=== PATIENT | male | born 1975 | race Caucasian/White ===

== ENCOUNTER → 2017-12-02 | Outpatient (REF) | payer OTHER ==
[2017-12-02 17:49] LABS: ALBUMIN 3.6 GM/DL (3.2-5.2); ALBUMIN/GLOBULIN RATIO 1.13 (1.00-1.93); ALKALINE PHOSPHATASE 95 U/L (45-117); ALT/SGPT 37 U/L (12-78); ANION GAP 6 MEQ/L (8-16); AST/SGOT 15 U/L (7-37); BILIRUBIN,TOTAL 0.2 MG/DL (0.2-1.0); BLOOD UREA NITROGEN 12 MG/DL (7-18); CALCIUM LEVEL 8.5 MG/DL (8.5-10.1); CARBON DIOXIDE LEVEL 28 MEQ/L (21-32); CHLORIDE LEVEL 107 MEQ/L (98-107); CREATININE FOR GFR 0.99 MG/DL (0.70-1.30); GLOMERULAR FILTRATION RATE > 60.0 (>60); GLUCOSE, FASTING 164 MG/DL (70-100); POTASSIUM SERUM 4.2 MEQ/L (3.5-5.1); SODIUM LEVEL 141 MEQ/L (136-145); TOTAL PROTEIN 6.8 GM/DL (6.4-8.2)
[2017-12-02 19:14] LABS: ESTIMATED AVERAGE GLUCOSE 146 MG/DL (60-110); HEMOGLOBIN A1c 6.7 %
== END ==
LOC: M SFHCLERA 13:46
DX: R73.01 Impaired fasting glucose (principal); R61 Generalized hyperhidrosis

== ENCOUNTER 2019-03-29 15:54 | Inpatient (IN) | payer OTHER ==
[~2019-03-29] VITALS: Ht 182.9 cm; Wt 104.8 kg
[2019-03-29] MEDS ORDERED: INSULIN HUMAN REGULAR 100 UNITS in NS 99 ML IV SCH ×3 (16:21→18:09)
[2019-03-29] MEDS ORDERED: INSULIN IV RATE CHANGE DOCUMENTATION ML/HR XX SCH ×3 (16:30→18:15)
[2019-03-29] MEDS ORDERED: NS 1,000 ML IV ONE ×2 (16:30→19:00)
[2019-03-29 16:39] LABS: VENOUS BASE EXCESS -2.7 (-2.0-2.0); VENOUS O2 SATURATION 97.7 % (60.0-80.0); VENOUS PARTIAL PRESSURE CO2 38.4 mmHg (38.0-50.0); VENOUS PARTIAL PRESSURE O2 97.2 mmHg (30.0-50.0); VENOUS PH 7.376 UNITS (7.330-7.430); VENOUS STANDARD HCO3 22.2 MEQ/L; VENOUS TOTAL CO2 23.2 MEQ/L (24.0-28.0)
[2019-03-29 16:41] LABS: BASO % 0.5 % (0.0-1.0); EOS # 0.2 10^3/uL (0.0-0.50); EOS % 1.8 % (0.0-3.0); HEMATOCRIT 43.5 % (42.0-52.0); HEMOGLOBIN 15.3 g/dl (13.5-17.5); LYMPH # 2.6 10^3/uL (1.5-4.5); LYMPH % 30.6 % (24.0-44.0); MEAN CORPUSCULAR HEMOGLOBIN 29.2 pg (27.0-33.0); MEAN CORPUSCULAR HGB CONC 35.2 g/dl (32.0-36.5); MONO # 0.5 10^3/uL (0.0-0.8); MONO % 5.6 % (0.0-5.0); NEUTROPHILS # 5.2 10^3/uL (1.8-7.7); NEUTROPHILS % 60.9 % (36.0-66.0); PLATELET COUNT, AUTOMATED 189 10^3/uL (150-450); RED BLOOD COUNT 5.24 10^6/uL (4.30-6.10); WHITE BLOOD COUNT 8.5 10^3/uL (4.0-10.0)
--- NOTE | 2019-03-29 16:48 | REP ---
Clinical: Diabetic ketoacidosis . Comparison: 10/11/2006. Findings: The mediastinum and cardiac silhouette are stable and within normal limits for portable technique. The lung conroy are clear without acute consolidation, effusion, or pneumothorax. Skeletal structures are intact. Impression: No acute cardiopulmonary process appreciated. Electronically Signed by Bharathi Lawrence MD 03/29/2019 04:40 P
[2019-03-29 17:11] LABS: HEMOGLOBIN A1c 12.6 %
[2019-03-29 17:17] LABS: ALBUMIN 3.7 GM/DL (3.2-5.2); BILIRUBIN,DIRECT < 0.1 MG/DL (0.0-0.2); BILIRUBIN,TOTAL 0.4 MG/DL (0.2-1.0); BLOOD UREA NITROGEN 16 MG/DL (7-18); CALCIUM LEVEL 8.3 MG/DL (8.5-10.1); CARBON DIOXIDE LEVEL 23 MEQ/L (21-32); CHLORIDE LEVEL 100 MEQ/L (98-107); ETHYL ALCOHOL (ETHANOL) < 0.003 % (0.000-0.010); GLOMERULAR FILTRATION RATE > 60.0 (>60); GLUCOSE, FASTING 533 MG/DL (70-100); LIPASE 270 U/L (73-393); POTASSIUM SERUM 4.3 MEQ/L (3.5-5.1); SODIUM LEVEL 132 MEQ/L (136-145); TOTAL PROTEIN 7.2 GM/DL (6.4-8.2)
[2019-03-29 17:31] LABS: ALT/SGPT 43 U/L (12-78)
[2019-03-29] MEDS ORDERED: MOM 30ML SUSPENSION UDC PO PRN (18:15)
[2019-03-29] MEDS ORDERED: ACETAMINOPHEN TAB 650MG DOSE (2X325MG) PO PRN (18:15)
[2019-03-29] MEDS ORDERED: MAALOX 30 ML SUSP *UDC PO PRN (18:15)
--- NOTE | 2019-03-29 18:36 | HPEPDOC ---
General Date of Admission 03/29/2019 Date of Service: Mar 29, 2019 Attending Physician: LATASHA TAMAYO MD Chief Complaint The patient is a 43-year-old male admitted with a reason for visit of Blood S ugar Problem. Source: Patient, Family Exam Limitations: No limitations Timing/Duration: Unsure Severity: Moderate Associated Symptoms: Other (polyuria, polydipsia) History of Present Illness 43 years old white male with past medical history of hypertension, diabetes mellitus, noncompliant to his meds. Hasn't seen a doctor long time, came in with chief complaints of increasing thirst, urination and blurring of vision, unable to drive. Denies chest pain, shortness of breath, syncope, etc. Home Medications No Active Prescriptions or Reported Meds Allergies Coded Allergies: divalproex sodium (Verified Adverse Reaction, Intermediate, hives/ trouble breathing, 03/29/19) Past Medical History Medical History Diabetes mellitus and hypertension Surgical History None Family History Significant Family History: No pertinent family hx Social History * Smoker: Denies Alcohol: Denies Drugs: denies A-FIB/CHADSVASC A-FIB History Current/History of A-Fib/PAF?: No Review of Systems Constitutional: Reports: Weakness, Fatigue, Other (, polydipsia); Denies: Chills, Fever, Malaise, Night Sweats, Weight Loss, Lethargy Eyes: Reports: Other (, blurred vision); Denies: Pain, Vision change, Conjunctivae inflammation, Eyelid inflammation, Redness ENT: Denies: Head Aches, Ear Pain, Dysphagia, Sinus Congestion, Post Nasal Drip, Sore Throat, Epistaxis Skin: Denies: Rash, Lesions, Jaundice, Bruising, Itching, Dry, Breakdown, Nail Changes, Other Pulmonary: Denies: Dyspnea, Cough, Pleuritic Chest Pain, Other Symptoms Cardiovascular: Denies: Chest Pain, Palpitations, Orthopnea, Paroxysmal Noc. Dyspnea, Edema, Lt Headedness, Other Symptoms Gastrointestinal: Denies: Nausea, Vomiting, Abdominal Pain, Diarrhea, Constipation, Melena, Hematochezia, Other Symptoms Genitourinary: Reports: Other Symptoms (, polyuria); Denies: Dysuria, Frequency, Incontinence, Hematuria, Retention Hematologic: Denies: Bruising, Bleeding Excessively, Petecchia, Purpura, Enlarged Lymph Nodes, Other Hematologic Endocrine: Reports: Polydipsia, Polyuria Musculoskeletal: Denies: Neck Pain, Back Pain, Shoulder Pain, Arm Pain, Hand Pain, Leg Pain, Foot Pain, Joint Pain, Muscle Pain, Spasms, Other Symptoms Neurological: Denies: Weakness, Numbness, Incoordination, Change in speech, Confusion, Seizures, Other Symptoms Psych: Denies: Mood Normal, Anxiety, Depression, Memory Issues, Thoughts of Self Harm, Anger, Thoughts of Harming Other, Other Psych Physical Examination General Exam: Positive: Alert, Cooperative Eye Exam: Positive: PERRLA, Conjunctiva & lids normal ENT Exam: Positive: Atraumatic, Mucous membr. moist/pink Neck Exam: Positive: Supple, JVD Chest Exam: Positive: Clear to auscultation Heart Exam: Positive: Rate Normal, Normal S1, Normal S2 Abdomen Exam: Positive: Normal bowel sounds, Soft Extremity Exam: Positive: Normal pulses Skin Exam: Positive: Nl turgor and temperature Neuro Exam: Positive: Normal Speech, Cranial Nerves 3-12 NL, Reflexes 2+ Psych Exam: Positive: Mental status NL, Mood NL, Oriented x 3 Vital Signs Vital Signs Date Time Temp Pulse Resp B/P (MAP) Pulse Ox O2 Delivery O2 Flow Rate FiO2 03/29/19 18:20 03/29/19 18:09 73 97 03/29/19 15:55 95.2 16 Room Air Laboratory Data Labs 24H Laboratory Tests 2 03/29/19 16:22: Bedside Glucose (Misc Panel) 513*H 03/29/19 16:33: Immature Granulocyte % (Auto) 0.6, White Blood Count 8.5, Red Blood Count 5.24, Hemoglobin 15.3, Hematocrit 43.5, Mean Corpuscular Volume 83.0, Mean Corpuscular Hemoglobin 29.2, Mean Corpuscular Hemoglobin Concent 35.2, Red Cell Distribution Width 12.6, Platelet Count 189, Neutrophils (%) (Auto) 60.9, Lymphocytes (%) (Auto) 30.6, Monocytes (%) (Auto) 5.6H, Eosinophils (%) (Auto) 1.8, Basophils (%) (Auto) 0.5, Neutrophils # (Auto) 5.2, Lymphocytes # (Auto) 2.6, Monocytes # (Auto) 0.5, Eosinophils # (Auto) 0.2, Basophils # (Auto) 0.0, Nucleated Red Blood Cells % (auto) 0.0, Blood Gas Bicarbonate Standard 22.2, Venous Blood pH 7.376, Venous Blood Partial Pressure CO2 38.4, Venous Blood Partial Pressure O2 97.2H, Venous Blood Total Carbon Dioxide 23.2L, Venous Blood HCO3 22.0L, Venous Blood Oxygen Saturation 97.7H, Venous Blood Base Excess -2.7L, Anion Gap 9, Glomerular Filtration Rate > 60.0, Estimated Mean Plasma Glucose 315H, Hemoglobin A1c 12.6, Calcium Level 8.3L, Aspartate Amino Transf (AST/SGOT) 20, Alanine Aminotransferase (ALT/SGPT) 43, Alkaline Phosphatase 149H, Total Bilirubin 0.4, Direct Bilirubin < 0.1, Total Protein 7.2, Albumin 3.7, Albumin/Globulin Ratio 1.06, Lipase 270, Ethyl Alcohol Level < 0.003 03/29/19 17:37: Bedside Glucose (Misc Panel) 365H CBC/BMP Laboratory Tests 03/29/19 16:33 Red Blood Count 5.24, Mean Corpuscular Volume 83.0, Mean Corpuscular Hemoglobin 29.2, Mean Corpuscular Hemoglobin Concent 35.2, Red Cell Distribution Width 12.6, Neutrophils (%) (Auto) 60.9, Lymphocytes (%) (Auto) 30.6, Monocytes (%) (Auto) 5.6 H, Eosinophils (%) (Auto) 1.8, Basophils (%) (Auto) 0.5, Neutrophils # (Auto) 5.2, Lymphocytes # (Auto) 2.6, Monocytes # (Auto) 0.5, Eosinophils # (Auto) 0.2, Basophils # (Auto) 0.0 Problems (1) Hyperglycemia Status: Acute Problem Text: , Hyperglycemia secondary to uncontrolled diabetes mellitus No evidence of stenosis. As patient's anion gap is normal, but he came with very high fingerstick blood sugar which is trending down with insulin drip Urine for ketones/a stone has been ordered Patient did get IV fluids and IV insulin drip in ED Keep patient on clear liquid diet Continue IV insulin as per protocol Monitor BMP every 4-6 hours Monitor serum phosphate and magnesium as well Patient will be started on oral hypoglycemic. Once his blood fingerstick blood sugar has been under been controlled Patient will also started on MIN inhibitor such as lisinopril 5 mg by mouth daily for hypertension and for diabetes mellitus Extensive counseling regarding compliance was done with him and his at the bedside DVT prophylaxis and Lovenox IV fluids normal saline at 150 mL per hour Possible downgrade to medical floor tomorrow Close monitoring Plan / VTE VTE Prophylaxis Ordered?: Yes LATASHA TAMAYO MD Mar 29, 2019 18:36
[2019-03-29] MEDS ORDERED: diphenhydrAMINE 50 MG CAP PO PRN (19:45)
[2019-03-29 20:19] LABS: AMPHETAMINES LEVEL URINE NEGATIVE (NEGATIVE); BARBITURATES URINE NEGATIVE (NEGATIVE); BENZODIAZEPINES URINE NEGATIVE (NEGATIVE); CANNABINOIDS URINE NEGATIVE (NEGATIVE); COCAINE METABOLITE URINE NEGATIVE (NEGATIVE); METHADONE URINE NEGATIVE (NEGATIVE); OPIATES URINE NEGATIVE (NEGATIVE); PHENCYCLIDINE URINE NEGATIVE (NEGATIVE)
[2019-03-29] MEDS: DOCUSATE SODIUM 100 MG CAP PO SCH (21:24)
[2019-03-29 22:30] VITALS: BP 121/80
[2019-03-29] MEDS ORDERED: DEXTROSE 50% 50 ML SYRINGE IV PRN (23:15)
[2019-03-29] MEDS ORDERED: GLUCOSE 4 GM CHEW TABLET PO PRN (23:15)
[2019-03-29] MEDS ORDERED: GLUCAGON FOR INJ 1 MG VIAL (J1610) SC PRN (23:15)
[2019-03-29] MEDS ORDERED: LEVEMIR (INSULIN DETEMIR) 1 UNITS/0.01ML SC ONE (23:30)
[2019-03-29] MEDS ORDERED: NICOTINE 14 MG/24 HR TRANSDERMAL TD ONE (23:30)
[2019-03-29] MEDS: HumaLOG INSULIN (NovoLOG) PER UNIT SC SCH (23:33)
[2019-03-30] VITALS: BP 125/83
[2019-03-30 03:13] LABS: HEMOGLOBIN 13.7 g/dl (13.5-17.5); MEAN CORPUSCULAR HEMOGLOBIN 28.9 pg (27.0-33.0); MEAN CORPUSCULAR HGB CONC 34.3 g/dl (32.0-36.5); MEAN CORPUSCULAR VOLUME 84.4 fl (80.0-96.0); PLATELET COUNT, AUTOMATED 177 10^3/uL (150-450); RED BLOOD COUNT 4.74 10^6/uL (4.30-6.10); WHITE BLOOD COUNT 7.7 10^3/uL (4.0-10.0)
[2019-03-30 03:42] LABS: ALBUMIN 2.9 GM/DL (3.2-5.2); ALT/SGPT 33 U/L (12-78); BILIRUBIN,TOTAL 0.2 MG/DL (0.2-1.0); BLOOD UREA NITROGEN 14 MG/DL (7-18); CALCIUM LEVEL 7.1 MG/DL (8.5-10.1); CARBON DIOXIDE LEVEL 25 MEQ/L (21-32); CHLORIDE LEVEL 107 MEQ/L (98-107); GLOMERULAR FILTRATION RATE > 60.0 (>60); GLUCOSE, FASTING 338 MG/DL (70-100); PHOSPHORUS LEVEL 2.6 MG/DL (2.5-4.9); POTASSIUM SERUM 3.6 MEQ/L (3.5-5.1); SODIUM LEVEL 140 MEQ/L (136-145)
[2019-03-30 04:00] VITALS: BP 142/79
[2019-03-30 08:00] VITALS: BP 152/83
[2019-03-30] MEDS: DOCUSATE SODIUM 100 MG CAP PO SCH ×2 (08:25→20:45)
[2019-03-30] MEDS: LISINOPRIL 5 MG TAB PO SCH (08:25)
[2019-03-30] MEDS: ENOXAPARIN 40 MG/0.4 ML SYRINGE (J1650) SC SCH (08:26)
[2019-03-30] MEDS: HumaLOG INSULIN (NovoLOG) PER UNIT SC SCH ×4 (08:26→20:45)
[2019-03-30 10:51] LABS: BLOOD UREA NITROGEN 13 MG/DL (7-18); CARBON DIOXIDE LEVEL 27 MEQ/L (21-32); CHLORIDE LEVEL 106 MEQ/L (98-107); CREATININE FOR GFR 1.16 MG/DL (0.70-1.30); GLOMERULAR FILTRATION RATE > 60.0 (>60); GLUCOSE, FASTING 338 MG/DL (70-100); PHOSPHORUS LEVEL 1.9 MG/DL (2.5-4.9); POTASSIUM SERUM 3.9 MEQ/L (3.5-5.1); SODIUM LEVEL 137 MEQ/L (136-145)
--- NOTE | 2019-03-30 11:26 | IPNPDOC ---
Subjective Date Seen The patient was seen on 03/30/19. Subjective Chief Complaint/HPI Patient is comfortable, he wishes to go home, but after extensive counseling, he decided to stay General: Denies: ROS Unobtainable, Chills, Night Sweats, Fatigue, Malaise, Normal Appetite, Other Symptoms Constitutional: Denies: Chills, Fever, Malaise, Night Sweats, Weakness, Fatigue, Weight Loss, Lethargy, Other Eyes: Denies: Pain, Vision change, Conjunctivae inflammation, Eyelid inflammation, Redness, Other ENT: Denies: Head Aches, Ear Pain, Dysphagia, Sinus Congestion, Post Nasal Drip, Sore Throat, Epistaxis, Other Symptoms Skin: Denies: Rash, Lesions, Jaundice, Bruising, Itching, Dry, Breakdown, Nail Changes, Other Pulmonary: Denies: Dyspnea, Cough, Pleuritic Chest Pain, Other Symptoms Cardiovascular: Denies: Chest Pain, Palpitations, Orthopnea, Paroxysmal Noc. Dyspnea, Edema, Lt Headedness, Other Symptoms Gastrointestinal: Denies: Nausea, Vomiting, Abdominal Pain, Diarrhea, Constipation, Melena, Hematochezia, Other Symptoms Musculoskeletal: Denies: Neck Pain, Back Pain, Shoulder Pain, Arm Pain, Hand Pain, Leg Pain, Foot Pain, Joint Pain, Muscle Pain, Spasms, Other Symptoms Neurological: Denies: Weakness, Numbness, Incoordination, Change in speech, Confusion, Seizures, Other Symptoms Psych: Denies: Mood Normal, Anxiety, Depression, Memory Issues, Thoughts of Self Harm, Anger, Thoughts of Harming Other, Other Psych Objective Physical Examination General Exam: Positive: Alert, Cooperative Eye Exam: Positive: PERRLA, Conjunctiva & lids normal ENT Exam: Positive: Atraumatic, Mucous membr. moist/pink Neck Exam: Positive: Supple, JVD Chest Exam: Positive: Clear to auscultation Heart Exam: Positive: Rate Normal, Normal S1, Normal S2 Abdomen Exam: Positive: Normal bowel sounds, Soft Extremity Exam: Positive: Normal pulses Skin Exam: Positive: Nl turgor and temperature Neuro Exam: Positive: Normal Speech, Cranial Nerves 3-12 NL, Reflexes 2+ Psych Exam: Positive: Mental status NL, Mood NL, Oriented x 3 Assessment /Plan Problems (1) Hyperglycemia Status: Acute Problem Text: Hyperglycemia secondary to uncontrolled diabetes mellitus No evidence of ketosis. As patient's anion gap is normal, but he came with very high fingerstick blood sugar which is trending down with insulin drip Urine for ketones/a stone has been ordered Patient responded very well to the IV insulin drip which was later changed to subcutaneous coverage He has a good oral intake. IV fluid has been DC'd Extensive counseling was done and patient decided to stay 1 more night for observation Patient will be started on Januvia and metformin from today and will follow fingerstick follow fingerstick blood sugar every before meals and at bedtime is also at bedside and all questions were answered Start carbohydrate consistent diet Plan/VTE VTE Prophylaxis Ordered?: Yes VS, I&O, 24H, Fishbone Vital Signs/I&O Vital Signs Date Time Temp Pulse Resp B/P (MAP) Pulse Ox O2 Delivery O2 Flow Rate FiO2 03/30/19 08:25 152/89 03/30/19 08:00 97.3 79 14 94 03/29/19 15:55 Room Air I&O- Last 24 Hours up to 6 AM 03/30/19 05:59 Intake Total 2386 ml Output Total 350 ml Balance 2036 ml Laboratory Data 24H LABS Laboratory Tests 2 03/29/19 16:22: Bedside Glucose (Misc Panel) 513*H 03/29/19 16:33: Immature Granulocyte % (Auto) 0.6, White Blood Count 8.5, Red Blood Count 5.24, Hemoglobin 15.3, Hematocrit 43.5, Mean Corpuscular Volume 83.0, Mean Corpuscular Hemoglobin 29.2, Mean Corpuscular Hemoglobin Concent 35.2, Red Cell Distribution Width 12.6, Platelet Count 189, Neutrophils (%) (Auto) 60.9, Lymphocytes (%) (Auto) 30.6, Monocytes (%) (Auto) 5.6H, Eosinophils (%) (Auto) 1.8, Basophils (%) (Auto) 0.5, Neutrophils # (Auto) 5.2, Lymphocytes # (Auto) 2.6, Monocytes # (Auto) 0.5, Eosinophils # (Auto) 0.2, Basophils # (Auto) 0.0, Nucleated Red Blood Cells % (auto) 0.0, Blood Gas Bicarbonate Standard 22.2, Venous Blood pH 7.376, Venous Blood Partial Pressure CO2 38.4, Venous Blood Partial Pressure O2 97.2H, Venous Blood Total Carbon Dioxide 23.2L, Venous Blood HCO3 22.0L, Venous Blood Oxygen Saturation 97.7H, Venous Blood Base Excess -2.7L, Anion Gap 9, Glomerular Filtration Rate > 60.0, Estimated Mean Plasma Glucose 315H, Hemoglobin A1c 12.6, Calcium Level 8.3L, Aspartate Amino Transf (AST/SGOT) 20, Alanine Aminotransferase (ALT/SGPT) 43, Alkaline Phosphatase 149H, Total Bilirubin 0.4, Direct Bilirubin < 0.1, Total Protein 7.2, Albumin 3.7, Albumin/Globulin Ratio 1.06, Lipase 270, Ethyl Alcohol Level < 0.003 03/29/19 17:37: Bedside Glucose (Misc Panel) 365H 03/29/19 18:38: Bedside Glucose (Misc Panel) 281H 03/29/19 19:15: Bedside Glucose (Misc Panel) 221H 03/29/19 19:36: Urine Color YELLOW, Urine Appearance CLEAR, Urine pH 5.0, Urine Specific [place] 1.037, Urine Protein NEGATIVE, Urine Glucose (UA) 3+H, Urine Ketones 1+H, Urine Blood NEGATIVE, Urine Nitrite NEGATIVE, Urine Bilirubin NEGATIVE, Urine Urobi linogen 0.2, Urine Leukocyte Esterase NEGATIVE, Urine WBC (Auto) 0, Urine RBC (Auto) 0, Urine Hyaline Casts (Auto) 0, Urine Bacteria (Auto) NEGATIVE, Urine Squamous Epithelial Cells 0, Urine Sperm (Auto) , Urine Amphetamines Screen NEGATIVE, Urine Benzodiazepines Screen NEGATIVE, Urine Opiates Screen NEGATIVE, Urine Methadone Screen NEGATIVE, Urine Barbiturates Screen NEGATIVE, Urine Phencyclidine Screen NEGATIVE, Urine Cocaine Metabolite Screen NEGATIVE, Urine Cannabinoids Screen NEGATIVE 03/29/19 20:42: Bedside Glucose (Misc Panel) 391H 03/29/19 22:36: Bedside Glucose (Misc Panel) 388H 03/30/19 02:13: Bedside Glucose (Misc Panel) 309H 03/30/19 02:59: Nucleated Red Blood Cells % (auto) 0.0, Anion Gap 8, Glomerular Filtration Rate > 60.0, Blood Urea Nitrogen 14, Creatinine 0.90, Sodium Level 140#, Potassium Level 3.6, Chloride Level 107, Carbon Dioxide Level 25, Calcium Level 7.1L, Phosphorus Level 2.6, Aspartate Amino Transf (AST/SGOT) 14, Alanine Aminotransferase (ALT/SGPT) 33, Alkaline Phosphatase 103, Total Bilirubin 0.2, Total Protein 6.0L, Albumin 2.9#L, Magnesium Level 2.0, Albumin/Globulin Ratio 0.94L 03/30/19 07:13: Bedside Glucose (Misc Panel) 284H 03/30/19 10:03: Anion Gap 4L, Glomerular Filtration Rate > 60.0, Blood Urea Nitrogen 13, Creatinine 1.16, Sodium Level 137, Potassium Level 3.9, Chloride Level 106, Carbon Dioxide Level 27, Calcium Level 8.0L, Phosphorus Level 1.9#L CBC/BMP Laboratory Tests 03/29/19 16:33 Red Blood Count 5.24, Mean Corpuscular Volume 83.0, Mean Corpuscular Hemoglobin 29.2, Mean Corpuscular Hemoglobin Concent 35.2, Red Cell Distribution Width 12.6, Neutrophils (%) (Auto) 60.9, Lymphocytes (%) (Auto) 30.6, Monocytes (%) (Auto) 5.6 H, Eosinophils (%) (Auto) 1.8, Basophils (%) (Auto) 0.5, Neutrophils # (Auto) 5.2, Lymphocytes # (Auto) 2.6, Monocytes # (Auto) 0.5, Eosinophils # (Auto) 0.2, Basophils # (Auto) 0.0 03/30/19 02:59 Red Blood Count 4.74, Mean Corpuscular Volume 84.4, Mean Corpuscular Hemoglobin 28.9, Mean Corpuscular Hemoglobin Concent 34.3, Red Cell Distribution Width 12.7, Calcium Level 7.1 L, Phosphorus Level 2.6, Aspartate Amino Transf (AST/SGOT) 14, Alanine Aminotransferase (ALT/SGPT) 33, Alkaline Phosphatase 103, Total Bilirubin 0.2, Total Protein 6.0 L, Albumin 2.9 #L 03/30/19 10:03 Calcium Level 8.0 L LATASHA TAMAYO MD Mar 30, 2019 11:26
[2019-03-30] MEDS ORDERED: SITagliptin 50 MG TAB (JANUVIA) PO SCH (12:00)
[2019-03-30] MEDS ORDERED: PILL CUTTER 1 EACH XX PRN (13:00)
[2019-03-30 14:00] VITALS: BP 137/96
[2019-03-30] MEDS: metFORMIN (GLUCOPHAGE) 500 MG TAB PO SCH (17:29)
[2019-03-30 18:00] VITALS: BP 134/44
[2019-03-30] MEDS ORDERED: NICOTINE 14 MG/24 HR TRANSDERMAL TD SCH (21:00)
[2019-03-30] MEDS ORDERED: LEVEMIR (INSULIN DETEMIR) 1 UNITS/0.01ML SC SCH (21:00)
[2019-03-30 22:00] VITALS: BP 137/70
[2019-03-31 06:00] VITALS: BP 133/74
[2019-03-31] MEDS ORDERED: LISI-542 PO (07:34)
[2019-03-31] MEDS ORDERED: GLUC500T PO (07:34)
[2019-03-31] MEDS ORDERED: SITA50TAB PO (07:34)
[2019-03-31] MEDS: HumaLOG INSULIN (NovoLOG) PER UNIT SC SCH (07:39)
[2019-03-31] MEDS: metFORMIN (GLUCOPHAGE) 500 MG TAB PO SCH (07:39)
[2019-03-31 07:40] VITALS: BP 133/74
[2019-03-31] MEDS: DOCUSATE SODIUM 100 MG CAP PO SCH (07:40)
[2019-03-31] MEDS: ENOXAPARIN 40 MG/0.4 ML SYRINGE (J1650) SC SCH (07:40)
[2019-03-31] MEDS: LISINOPRIL 5 MG TAB PO SCH (07:40)
--- NOTE | 2019-03-31 11:27 | DS.PDOC ---
Discharge Summary General Date of Admission Mar 29, 2019 at 18:09 Date of Discharge 03/31/2019 Attending Physician: LATASHA TAMAYO MD Discharge Summary PROCEDURES PERFORMED DURING STAY: None. ADMITTING DIAGNOSES: 1. Hyperglycemia. DISCHARGE DIAGNOSES: 1. Hyperglycemia secondary to uncontrolled and untreated diabetes. COMPLICATIONS/CHIEF COMPLAINT: Hyperglycemia. HISTORY OF PRESENT ILLNESS: . HOSPITAL COURSE: Problem Text: Hyperglycemia secondary to uncontrolled and untreated diabetes mellitus No evidence of ketosis. As patient's anion gap is normal, but he came with very high fingerstick blood sugar which is trending down with insulin drip Urine for ketones/a stone has been ordered Patient responded very well to the IV insulin drip which was later changed to subcutaneous coverage He has a good oral intake. IV fluid has been DC'd Extensive counseling was done and patient decided to stay 1 more night for observation Patient will be started on Januvia and metformin from today and will follow jazlyn darby follow fingerstick blood sugar every before meals and at bedtime is also at bedside and all questions were answered On diabetic diet, patient will be discharged home on by mouth metformin and Januvia Extensive complaints. Counseling was done with patient and all risks were explained to . DISCHARGE MEDICATIONS: Please see below. ALLERGIES: Please see below. PHYSICAL EXAMINATION ON DISCHARGE: VITAL SIGNS: Please see below. GENERAL: Within normal limits HEENT: PERRLA NECK: Supple CARDIOVASCULAR EXAMINATION: S1, S2, regular RESPIRATORY EXAMINATION: [Clear to A&P ABDOMINAL EXAMINATION: Benign EXTREMITIES: [No clubbing, cyanosis, edema SKIN: Within normal limits NEUROLOGICAL EXAMINATION: . No focal motor sensory deficit PSYCHIATRIC EXAMINATION: Normal LABORATORY DATA: Please see below. IMAGING: None PROGNOSIS: Good ACTIVITY: As tolerated. DIET: Carbohydrate consistent diet DISCHARGE PLAN: Follow with PCP for continuous care of his diabetes mellitus DISPOSITION: Home, Self-Care. DISCHARGE INSTRUCTIONS: 1. As above. ITEMS TO FOLLOWUP ON ON OUTPATIENT: 1. Hemoglobin A1c in 3 months. DISCHARGE CONDITION: Stable. TIME SPENT ON DISCHARGE: 35 minutes. Vital Signs/I&Os Vital Signs Date Time Temp Pulse Resp B/P (MAP) Pulse Ox O2 Delivery O2 Flow Rate FiO2 03/31/19 07:40 133/74 03/31/19 06:00 97.7 70 18 97 03/29/19 15:55 Room Air I&O- Last 24 Hours up to 6 AM 03/31/19 05:59 Intake Total 1920 ml Output Total 0 ml Balance 1920 ml Laboratory Data Labs 24H Laboratory Tests 2 03/30/19 11:48: Bedside Glucose (Misc Panel) 334H 03/30/19 16:32: Bedside Glucose (Misc Panel) 304H 03/30/19 20:34: Bedside Glucose (Misc Panel) 257H 03/31/19 05:37: Bedside Glucose (Misc Panel) 277H FSBS Laboratory Tests Test 03/30/19 11:48 03/30/19 16:32 03/30/19 20:34 03/31/19 05:37 Range/Units Bedside Glucose (Misc Panel) 334 304 257 277 70-105 MG/DL Discharge Medications Scheduled Lisinopril (Lisinopril) 5 Mg Tablet, 5 MG PO DAILY Metformin HCl (Glucophage) 500 Mg Tablet, 500 MG PO BID@08,18 Sitagliptin (Januvia) 50 Mg Tablet, 25 MG PO DAILY@1200 Allergies Coded Allergies: divalproex sodium (Verified Adverse Reaction, Intermediate, hives/ trouble breathing, 03/29/19) LATASHA TAMAYO MD Mar 31, 2019 11:26
== END 2019-03-31 08:39 | disposition home or self-care (01) | DRG 420 ==
LOC: M ED 15:54 → M ED INP 18:09 → M ICU 22:21 → M MSPAV 03-30 11:27
PROVIDERS: ADMIT Internal Medicine; ATTEND Internal Medicine
DX: E11.65 Type 2 diabetes mellitus with hyperglycemia (principal); I10 Essential (primary) hypertension; Z91.14 Patient's other noncompliance with medication regimen; Z88.8 Allergy status to other drugs, medicaments and biological substances

== ENCOUNTER → 2019-07-31 | Outpatient (CLI) | payer MEDICAID ==
[~2019-07-31] MED LIST: GLUC500T PO; LISI-542 PO; SITA50TAB PO
== END ==
LOC: M OUTALCOH 10:17
PROVIDERS: ATTEND Psychiatry & Neurology Psychiatry
DX: Z03.89 Encounter for observation for other suspected diseases and conditions ruled out (principal)

== ENCOUNTER 2019-08-09 07:49 | Outpatient (RCR) | payer MEDICAID | END 2019-09-01 | LOC: M OUTALCOH 07:49 | PROVIDERS: ATTEND Psychiatry & Neurology Psychiatry | DX: Z03.89 Encounter for observation for other suspected diseases and conditions ruled out (principal) ==

== ENCOUNTER → 2020-11-13 | Outpatient (CLI) | payer MEDICAID, OTHER ==
[~2020-11-13] MED LIST changes: -LISI-542 PO; +LISI-898 PO
[2020-11-13 14:27] LABS: BASO # 0.1 10^3/uL (0.0-0.2); BASO % 0.5 % (0.0-1.0); EOS # 0.1 10^3/uL (0.0-0.5); EOS % 1.1 % (0.0-3.0); HEMATOCRIT 48.5 % (42.0-52.0); LYMPH # 2.7 10^3/uL (1.5-5.0); LYMPH % 20.4 % (24.0-44.0); MEAN CORPUSCULAR HEMOGLOBIN 28.2 pg (27.0-33.0); MEAN CORPUSCULAR VOLUME 85.5 fl (80.0-96.0); MONO # 0.7 10^3/uL (0.0-0.8); MONO % 5.2 % (0.0-5.0); NEUTROPHILS # 9.6 10^3/uL (1.5-8.5); NEUTROPHILS % 72.4 % (36.0-66.0); PLATELET COUNT, AUTOMATED 219 10^3/uL (150-450); RED BLOOD COUNT 5.67 10^6/uL (4.30-6.10); WHITE BLOOD COUNT 13.3 10^3/uL (4.0-10.0)
[2020-11-13 14:54] LABS: ALBUMIN 3.9 GM/DL (3.2-5.2); ALT/SGPT 23 U/L (12-78); BILIRUBIN,TOTAL 0.4 MG/DL (0.2-1.0); BLOOD UREA NITROGEN 12 MG/DL (7-18); CALCIUM LEVEL 8.8 MG/DL (8.5-10.1); CARBON DIOXIDE LEVEL 27 MEQ/L (21-32); CHLORIDE LEVEL 104 MEQ/L (98-107); CHOLESTEROL LEVEL 204 MG/DL (<200); CREATININE FOR GFR 1.03 MG/DL (0.70-1.30); GLOMERULAR FILTRATION RATE > 60.0 (>60); GLUCOSE, FASTING 333 MG/DL (70-100); HDL CHOLESTEROL 31 MG/DL (>40); LDL CHOLESTEROL 111 MG/DL (<100); NON-HDL-C 173 MG/DL; POTASSIUM SERUM 3.9 MEQ/L (3.5-5.1); SODIUM LEVEL 140 MEQ/L (136-145); TOTAL PROTEIN 6.9 GM/DL (6.4-8.2); TRIGLYCERIDES LEVEL 308 MG/DL (<150)
[2020-11-13 15:11] LABS: MAU/CREAT RATIO 33.1 MCG/MG (0.0-30.0)
[2020-11-13 15:38] LABS: HEMOGLOBIN A1c 11.9 %
== END ==
LOC: M WUC 13:25
PROVIDERS: ATTEND Nurse Practitioner Family
DX: I10 Essential (primary) hypertension (principal); E11.65 Type 2 diabetes mellitus with hyperglycemia

== ENCOUNTER 2022-05-19 18:27 | Emergency (ER) | payer MEDICAID, OTHER ==
[~2022-05-19] VITALS: Ht 182.9 cm; Wt 95.8 kg
[~2022-05-19 18:27] MED LIST changes: -LISI-898 PO; +LISI5TAB11 PO
[2022-05-19] MEDS ORDERED: BASA100I (18:37)
[2022-05-20] MEDS ORDERED: ACETAMINOPHEN 325 MG TAB PO ONE (00:50)
[2022-05-20 01:15] VITALS: BP 158/92
== END 2022-05-20 01:38 | disposition home or self-care (01) ==
LOC: M ED 18:27
DX: S06.0X0A Concussion without loss of consciousness, initial encounter (principal); S50.12XA Contusion of left forearm, initial encounter; W22.8XXA Striking against or struck by other objects, initial encounter; Y92.89 Other specified places as the place of occurrence of the external cause; Y99.0 Civilian activity done for income or pay; Z88.8 Allergy status to other drugs, medicaments and biological substances; F17.200 Nicotine dependence, unspecified, uncomplicated

== ENCOUNTER → 2022-06-30 | Outpatient (CLI) | payer OTHER ==
[~2022-06-30] MED LIST changes: +BASA100I
[2022-06-30 16:49] LABS: HEMOGLOBIN A1c 10.7 %
[2022-06-30 17:24] LABS: BLOOD UREA NITROGEN 14 MG/DL (7-18); CALCIUM LEVEL 9.3 MG/DL (8.5-10.1); CARBON DIOXIDE LEVEL 28 MEQ/L (21-32); CHLORIDE LEVEL 105 MEQ/L (98-107); CREATININE FOR GFR 1.15 MG/DL (0.70-1.30); GLOMERULAR FILTRATION RATE > 60.0 (>60); GLUCOSE, FASTING 251 MG/DL (70-100); SODIUM LEVEL 139 MEQ/L (136-145)
[2022-06-30 17:26] LABS: MALB URINE SIEMENS 76.9 MG/L
== END ==
LOC: M WUC 13:47
PROVIDERS: ATTEND Family Medicine
DX: E11.65 Type 2 diabetes mellitus with hyperglycemia (principal)

== ENCOUNTER → 2022-09-28 | Outpatient (CLI) | payer OTHER | LOC: M RAD 14:23 | PROVIDERS: ATTEND Family Medicine | DX: R55 Syncope and collapse (principal) ==

== ENCOUNTER → 2022-11-08 | Outpatient (CLI) | payer OTHER ==
[2022-11-08 16:40] LABS: BASO # 0.1 10^3/uL (0.0-0.2); BASO % 0.7 % (0.0-1.0); EOS # 0.2 10^3/uL (0.0-0.5); EOS % 2.2 % (0.0-3.0); HEMATOCRIT 48.7 % (42.0-52.0); HEMOGLOBIN 16.2 g/dl (13.5-17.5); LYMPH # 2.8 10^3/uL (1.5-5.0); LYMPH % 28.2 % (24.0-44.0); MEAN CORPUSCULAR HEMOGLOBIN 27.8 pg (27.0-33.0); MEAN CORPUSCULAR HGB CONC 33.3 g/dl (32.0-36.5); MEAN CORPUSCULAR VOLUME 83.7 fl (80.0-96.0); MONO # 0.7 10^3/uL (0.0-0.8); MONO % 6.7 % (2.0-8.0); NEUTROPHILS # 6.1 10^3/uL (1.5-8.5); NEUTROPHILS % 61.8 % (36.0-66.0); PLATELET COUNT, AUTOMATED 257 10^3/uL (150-450); RED BLOOD COUNT 5.82 10^6/uL (4.30-6.10); WHITE BLOOD COUNT 9.9 10^3/uL (4.0-10.0)
[2022-11-08 16:53] LABS: HEMOGLOBIN A1c 9.9 % (4.0-6.0)
[2022-11-08 17:03] LABS: FOLATE 10.94 NG/ML (>5.4); LIPASE 34 U/L (12-53); THYROID STIMULATING HORMONE 2.105 uIU/ML (0.55-4.78); TOTAL 25(OH) VITAMIN D 14.4 NG/ML (20.0-100.0)
[2022-11-08 17:05] LABS: ALBUMIN 3.7 G/DL (3.2-5.2); ALKALINE PHOSPHATASE 96 U/L (46-116); ALT/SGPT 19 U/L (7.0-40); AST/SGOT 14 U/L (<34); BILIRUBIN,TOTAL 0.5 MG/DL (0.3-1.2); BLOOD UREA NITROGEN 13 MG/DL (9-23); CARBON DIOXIDE LEVEL 27 MMOL/L (20-31); CHLORIDE LEVEL 103 MMOL/L (98-107); CREATININE FOR GFR 0.86 MG/DL (0.70-1.30); GLOMERULAR FILTRATION RATE > 60.0 (>60); GLUCOSE, FASTING 284 MG/DL (60-100); IRON (FE) 146 UG/DL (65-175); PERCENT SATURATION 39.5 % (19.7-50.0); SODIUM LEVEL 136 MMOL/L (136-145); TOTAL IRON BINDING CAPACITY 370 UG/DL (250-425); TOTAL PROTEIN 6.5 G/DL (5.7-8.2)
[2022-11-08 17:06] LABS: FERRITIN 208.5 NG/ML (10.5-307.3)
[2022-11-08 17:07] LABS: VITAMIN B12 LEVEL 464 PG/ML (211-911)
== END ==
LOC: M WUC 12:35
PROVIDERS: ATTEND Family Medicine
DX: R53.83 Other fatigue (principal); E11.65 Type 2 diabetes mellitus with hyperglycemia; R10.9 Unspecified abdominal pain

== ENCOUNTER → 2022-12-29 | Outpatient (REF) | LOC: M PLAIMG 08:54 | PROVIDERS: ATTEND Internal Medicine Endocrinology, Diabetes & Metabolism | DX: R52 Pain, unspecified (principal) ==

== ENCOUNTER → 2023-02-24 | Outpatient (CLI) | payer OTHER ==
[~2023-02-24] MED LIST changes: +ISOVUE-370 76% 100ML VIAL As Ordered ONE
== END ==
LOC: M RAD 08:03
PROVIDERS: ATTEND Physician Assistant
DX: H53.8 Other visual disturbances (principal)
CPT/HCPCS: 70470; Q9967

== ENCOUNTER → 2023-05-04 | Outpatient (REF) | payer OTHER ==
[~2023-05-04] MED LIST changes: -ISOVUE-370 76% 100ML VIAL As Ordered ONE
[2023-05-04 18:31] LABS: CREATININE, URINE 94.7 MG/DL; MAU/CREAT RATIO 10.5 MCG/MG (0.0-30.0)
== END ==
LOC: M LAB REF 16:59
PROVIDERS: ATTEND Nurse Practitioner Family
DX: E11.65 Type 2 diabetes mellitus with hyperglycemia (principal)

== ENCOUNTER → 2023-05-11 | Outpatient (CLI) | payer OTHER ==
[2023-05-11 14:04] LABS: ALBUMIN 3.6 G/DL (3.2-5.2); ALKALINE PHOSPHATASE 129 U/L (46-116); ALT/SGPT 19 U/L (7.0-40); AST/SGOT < 8 U/L (<34); BILIRUBIN,TOTAL 0.3 MG/DL (0.3-1.2); BLOOD UREA NITROGEN 13 MG/DL (9-23); CARBON DIOXIDE LEVEL 28 MMOL/L (20-31); CHLORIDE LEVEL 103 MMOL/L (98-107); CHOLESTEROL LEVEL 192 MG/DL (<200); CHOLESTEROL RISK RATIO 6.19 (<5); CREATININE FOR GFR 0.84 MG/DL (0.70-1.30); GLOMERULAR FILTRATION RATE > 60.0 (>60); GLUCOSE, FASTING 341 MG/DL (60-100); LDL CHOLESTEROL 92.8 MG/DL (<100); POTASSIUM SERUM 4.6 MMOL/L (3.5-5.1); SODIUM LEVEL 138 MMOL/L (136-145); TOTAL PROTEIN 6.7 G/DL (5.7-8.2); TRIGLYCERIDES LEVEL 341 MG/DL (<150)
== END ==
LOC: M PLALAB 09:44
PROVIDERS: ATTEND Nurse Practitioner Family
DX: E11.65 Type 2 diabetes mellitus with hyperglycemia (principal)